=== PATIENT | female | born 1955 | race Caucasian/White ===

== ENCOUNTER 2020-10-12 10:18 | Emergency (ER) | payer MEDICARE, OTHER ==
--- NOTE | 2020-10-12 11:35 | EDM.PDOC ---
ED HPI GENERAL MEDICAL PROBLEM - General Chief Complaint: Lower Extremity Injury/Pain Stated Complaint: FELL Time Seen by Provider: 10/12/20 11:10 Source of Information: Reports: Patient, RN History Limitations: Reports: No Limitations - History of Present Illness INITIAL COMMENTS - FREE TEXT/NARRATIVE: Patient was outside walking in her yard and tripped on an uneven surface between the asphalt and the sidewalk just prior to arrival. She landed on her right arm and shoulder area and has limited range of motion. She also had injury to her left foot with swelling over her fourth metatarsal. She came in to make sure that there is no breaks or serious injury before she leaves town. She took nothing for the pain. She has no pain unless she has movement. 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: Other (see below) (None) - Related Data Allergies Allergy/AdvReac Type Severity Reaction Status Date / Time No Known Allergies Allergy Verified 10/12/20 10:53 Home Meds: Home Meds Albuterol [Proventil HFA] 2 puff INH Q4HR PRN 10/12/20 [History] Budesonide/Formoterol Fumarate [Symbicort 160-4.5 Mcg Inhaler] 2 puff INH BID 10/12/20 [History] Montelukast Sodium [Singulair] 1 tab PO DAILY 10/12/20 [History] Past Medical History Respiratory History: Reports: Asthma Social & Family History - Tobacco Use Tobacco Use Status *Q: Never Tobacco User Review of Systems - Review of Systems Review Of Systems: See Below Constitutional: Reports: No Symptoms Eyes: Reports: No Symptoms Respiratory: Reports: No Symptoms Cardiovascular: Reports: No Symptoms GI/Abdominal: Reports: No Symptoms Musculoskeletal: Reports: Shoulder Pain (Right-sided), Arm Pain (Right upper), Joint Pain (Left forefoot), Joint Swelling (Left forefoot) Skin: Reports: No Symptoms Neurological: Reports: No Symptoms Psychiatric: Reports: No Symptoms ED EXAM, GENERAL - Physical Exam Exam: See Below Exam Limited By: No Limitations General Appearance: Alert, WD/WN, Mild Distress Head: Atraumatic, Normocephalic Neck: Normal Inspection, Supple, Non-Tender, Full Range of Motion Respiratory/Chest: No Respiratory Distress, Lungs Clear, Normal Breath Sounds Cardiovascular: Normal Peripheral Pulses, Regular Rate, Rhythm, No Edema Peripheral Pulses: 2+: Radial (L), Radial (R), Dorsalis Pedis (L), Dorsalis Pedis (R) Back Exam: Normal Inspection, Full Range of Motion Extremities: Joint Swelling (Left foot), Limited Range of Motion (Right shoulder) Neurological: Alert, Oriented, CN II-XII Intact, Normal Cognition Psychiatric: Normal Affect, Normal Mood Skin Exam: Warm, Intact, Erythema (Over fourth metatarsal left foot) Lymphatic: No Adenopathy Course - Vital Signs Last Recorded V/S: Last Vital Signs Temp 35.9 C L 10/12/20 10:59 Pulse 81 10/12/20 10:59 Resp 16 10/12/20 10:59 BP 152/70 H 10/12/20 10:59 Pulse Ox 97 10/12/20 10:59 - Orders/Labs/Meds Orders: Active Orders 24 hr Category Date Time Status Foot Comp Min 3V Lt [CR] Stat Exams 10/12/20 11:23 Taken Humerus Rt [CR] Stat Exams 10/12/20 11:23 Taken Shoulder Comp Rt [CR] Stat Exams 10/12/20 11:23 Taken DME for Discharge [COMM] Per Unit Routine Oth 10/12/20 12:24 Ordered - Radiology Interpretation Free Text/Narrative:: Foot x-ray shows fracture of fifth metatarsal base. Will place her in a walking shoe with follow-up Ortho this next week Shoulder x-ray shows humeral head fracture. We will place her in a sling with follow-up Ortho this next week - Re-Assessments/Exams Free Text/Narrative Re-Assessment/Exam: 10/12/20 12:21 Educated patient to fractures at both the right shoulder and left foot. Patient is traveling and has been for the last 4 years. She intends to find a place to stay over the next amount of time for healing and follow-up with Ortho locally here. Free Text/Narrative Re-Assessment/Exam: 10/12/20 12:[address] Acevedo this week. Patient declines pain medicine at this point she states she is in not in pain as long as she is not moving and will use Tylenol/ibuprofen as appropriate. 10/12/20 12:29 Departure - Departure Time of Disposition: 12:48 Disposition: Home, Self-Care 01 Condition: Fair Clinical Impression: Fracture of humeral head, right, closed, Metatarsal stress fracture of left foot - Discharge Information *PRESCRIPTION DRUG MONITORING PROGRAM REVIEWED*: Not Applicable *COPY OF PRESCRIPTION DRUG MONITORING REPORT IN PATIENT ROBERTO: Not Applicable Instructions: Humerus Fracture Treated With Immobilization, [id number], Metatarsal Fracture Referrals: PCP,None [Primary Care Provider] - 3 Days (Follow up with Dr. Acevedo (ortho) in next 3-5 days. fall with right humeral head fracture and left 5th metatarsal fracture. Pt placed in cast shoe and arm sling. ) Forms: ED Department Discharge Sepsis Event Note (ED) - Evaluation Sepsis Screening Result: No Definite Risk - Focused Exam Vital Signs: Vital Signs Temp Pulse Resp BP Pulse Ox 10/12/20 10:59 35.9 C L 81 16 152/70 H 97 10/12/20 10:52 35.9 C L 81 16 152/70 H 97 - My Orders Last 24 Hours: My Active Orders 10/12/20 11:23 Foot Comp Min 3V Lt [CR] Stat Humerus Rt [CR] Stat Shoulder Comp Rt [CR] Stat 10/12/20 12:24 DME for Discharge [COMM] Per Unit Routine - Assessment/Plan Last 24 Hours: My Active Orders 10/12/20 11:23 Foot Comp Min 3V Lt [CR] Stat Humerus Rt [CR] Stat Shoulder Comp Rt [CR] Stat 10/12/20 12:24 DME for Discharge [COMM] Per Unit Routine Assessment:: Fracture right humeral head. Patient placed in sling. Fracture of fifth metatarsal at the base left foot. Placed in cast boot. Plan: Patient to follow-up with orthopedics this week for right humeral head fracture and fifth metatarsal fracture left foot.
--- NOTE | 2020-10-13 11:08 | CR ---
Shoulder Comp Rt, Humerus Rt CLINICAL HISTORY: Injury fall FINDINGS: There is some cortical irregularity in the subcapital region of the humerus. There is also some disruption of the normal trabecular pattern. Impression: Irregular density in the subcapital region of the proximal humerus is suspect for nondisplaced fracture , Humerus Rt FINDINGS: There is some disruption of the trabecular pattern in the subcapital region of the humerus. IMPRESSION: Suspected nondisplaced fracture proximal humerus.
--- NOTE | 2020-10-13 11:09 | CR ---
Foot Comp Min 3V Lt CLINICAL HISTORY: Fall FINDINGS: There is a fracture through the base of the fifth metatarsal with minimal displacement. IMPRESSION: Fracture fifth metatarsal
== END 2020-10-12 12:48 | disposition home or self-care (01) ==
LOC: JP.ED 10:18
DX: S92.352A Displaced fracture of fifth metatarsal bone, left foot, initial encounter for closed fracture (principal); S42.292A Other displaced fracture of upper end of left humerus, initial encounter for closed fracture; S42.291A Other displaced fracture of upper end of right humerus, initial encounter for closed fracture; W01.0XXA Fall on same level from slipping, tripping and stumbling without subsequent striking against object, initial encounter; Y92.480 Sidewalk as the place of occurrence of the external cause
CPT/HCPCS: 73030-26-RT; 73030-RT; 73060-26-RT; 73060-RT; 73630-26-LT; 73630-LT; 99283; 99283-25